=== PATIENT | female | born 1960 | race African-American/Black ===

== ENCOUNTER 2022-07-02 09:06 | Outpatient (CLI) | payer OTHER | END 2022-07-02 09:07 | disposition home or self-care (01) | LOC: BURRAD 09:06 | PROVIDERS: ATTEND Family Medicine | DX: R05.9 Cough, unspecified (principal) | CPT/HCPCS: 71046 ==

== ENCOUNTER 2024-02-17 15:56 | Emergency (ER) | payer OTHER ==
[2024-02-17] MEDS ORDERED: Morphine 4 MG/ML VIAL ONE (16:24)
[2024-02-17] MEDS ORDERED: HYDROcodone/Acetaminophen 5/325 mg Tablet ONE (17:09)
== END 2024-02-17 17:18 | disposition home or self-care (01) ==
LOC: BURERS 15:56
DX: M54.50 Low back pain, unspecified (principal); I10 Essential (primary) hypertension; F17.210 Nicotine dependence, cigarettes, uncomplicated
CPT/HCPCS: 72131; 96372; J2272

== ENCOUNTER 2025-05-08 08:53 | Outpatient (CLI) | payer MEDICAID | END 2025-05-08 08:54 | disposition home or self-care (01) | LOC: BURRAD 08:53 | PROVIDERS: ATTEND Nurse Practitioner Family | DX: M47.816 Spondylosis without myelopathy or radiculopathy, lumbar region (principal) | CPT/HCPCS: 72110 ==